=== PATIENT | female | born 1990 | race Caucasian/White ===

== ENCOUNTER 2016-07-24 06:10 | Day surgery (SDC) | payer MEDICAID ==
[2016-07-22 10:29] LABS: HEMATOCRIT 41.3 % (36.0-47.0); HEMOGLOBIN 14.4 g/dL (12.0-15.5); HGB HCT DIFFERENCE 1.9; MEAN CORPUSCULAR HEMOGLOBIN 31.4 pg (27.0-33.4); MEAN CORPUSCULAR HGB CONC 34.8 g/dL (32.0-36.0); MEAN CORPUSCULAR VOLUME 90 fl (80-97); RED BLOOD COUNT 4.57 10^6/uL (3.72-5.28); RED CELL DISTRIBUTION WIDTH 13.5 % (11.5-14.0); WHITE BLOOD COUNT 5.1 10^3/uL (4.0-10.5)
[2016-07-22 10:37] LABS: APPEARANCE,URINE CLOUDY; BILIRUBIN,URINE NEGATIVE (NEGATIVE); GLUCOSE, URINE NEGATIVE (NEGATIVE); KETONES,URINE NEGATIVE (NEGATIVE); LEUKOCYTE ESTERASE,URINE LARGE (NEGATIVE); NITRITE,URINE NEGATIVE (NEGATIVE); PROTEIN,URINE 30 mg/dL (NEGATIVE); URINE SPECIFIC GRAVITY 1.028; UROBILINOGEN,URINE NEGATIVE mg/dL (<2.0)
[~2016-07-24 06:10] MED LIST: IBUPROFEN 800 MG TABLET PO PRN; LACTATED RINGERS 1000 ML IV PRN; LIDOCAINE 0.5% INJ-PF (5 MG/ML) 50 ML SDV SUBCUT PRN; MORPHINE SULFATE 10 MG/ML INJ INJ PRN; OXYCODONE-ACETAMINOPHEN 5-325 MG TABLET PO PRN
[2016-07-24] MEDS ORDERED: HYDROMORPHONE HCL INJ/PF 2 MG/ML AMPULE ONE (08:07)
[2016-07-24] MEDS ORDERED: MIDAZOLAM 2 MG/2 ML INJ ONE (08:07)
[2016-07-24] MEDS ORDERED: PROPOFOL INJ 200 MG/20 ML VIAL IV ONE (08:08)
[2016-07-24] MEDS ORDERED: ACETAMINOPHEN 100 ML IV ONE (08:08)
[2016-07-24] MEDS ORDERED: DEXAMETHASONE SOD PHOSPHATE INJ 4 MG/1 ML VIAL ONE (08:12)
[2016-07-24] MEDS ORDERED: ONDANSETRON HCL INJ/PF 4 MG/2 ML SDV ONE (08:12)
[2016-07-24] MEDS ORDERED: DIPHENHYDRAMINE HCL 50 MG/ML VIAL IV PRN (08:55)
[2016-07-24] MEDS ORDERED: MORPHINE SULFATE 10 MG/ML INJ IV PRN (08:55)
[2016-07-24] MEDS ORDERED: MEPERIDINE HCL/PF INJ 25 MG/1 ML DISP.SYRIN IV PRN (08:55)
[2016-07-24] MEDS ORDERED: ONDANSETRON HCL INJ/PF 4 MG/2 ML SDV IV PRN (08:55)
[2016-07-24] MEDS ORDERED: PROMETHAZINE HCL INJ 25 MG/1 ML VIAL IV PRN ×2 (08:55)
[2016-07-24] MEDS ORDERED: OXYCODONE-ACETAMINOPHEN 5-325 MG TABLET PO PRN ×2 (08:55)
[2016-07-24] MEDS ORDERED: FENTANYL CITRATE INJ/PF 100 MCG/2 ML AMPUL IV PRN ×3 (08:55)
[2016-07-24] MEDS ORDERED: EPHEDRINE SULFATE INJ 50 MG/1 ML AMPULE ONE (09:02)
--- NOTE | 2016-07-24 10:03 | OPERATIVE REPORT E ---
Operative Report NAME: NURY ROSALES : 1990 AGE: 26Y DATE OF SURGERY: 07/30/2016 ROOM: PREOPERATIVE DIAGNOSIS: Undesired fertility. POSTOPERATIVE DIAGNOSIS: Undesired fertility. TECHNICAL PROCEDURE: Laparoscopic bilateral salpingectomy done for permanent sterilization. SURGEON: JORDI MCCORD M.D. CAR ICER: Samina Madrigal, Nursing Technician student ANESTHESIA: Dr. Johnson with General. FINDINGS: Normal uterus, tubes, and ovaries. Normal cervix. COMPLICATIONS: None. ESTIMATED BLOOD LOSS: Twenty mL. SPECIMENS REMOVED: Bilateral fallopian tubes. PROCEDURE IN DETAIL: Patient had been counseled and consented, both in the office at preop, as well as again today regarding risks of regret and permanence of this procedure. She was also counseled on the benefits of complete removal versus partial salpingectomy. She did opt for complete removal of her fallopian tubes and she was once again counseled on risks of regret and the need for reproductive endocrinology services should she desire future childbearing, but she assured me with her 4 children that she does not desire any future childbearing. Patient was taken to the operating room, prepared, and draped in a normal sterile fashion and in dorsal lithotomy position under sterile conditions an in and out catheter was performed of approximately 60 mL of clear urine. Sterile speculum was then placed into the vagina. The cervix was grasped with a single tooth tenaculum on the anterior lip and the cervix was prepped with Betadine. The cervix was then dilated with a Hulka clamp for uterine manipulation and this was placed without difficulty through the cervix. Speculum was then removed and gloves were changed and attention was turned to the upper portion of the case, where the umbilicus was grasped with 2 towel clips on either side and tented up. We then made a small 5 mm incision with an 11 blade and the Veress needle was introduced through this incision. Peritoneal cavity placement was confirmed with free flow of sterile water through the Veress needle. The abdomen was then insufflated with approximately 1.5 liters of CO2 gas. The Veress needle was removed and a 5 mm port was placed through which the camera was placed and it confirmed peritoneal placement. Under direct visualization, 2 more 5 mm ports were placed approximately 10 cm on either side of the umbilicus. The bowel was swept away. The patient was placed in steep Trendelenburg and the uterus was elevated. The left fallopian tube was grasped with an atraumatic grasper and a LigaSure was used to divide the mesosalpinx from the ovary and the fundus of the uterus until it was completely freed. This was then removed easily through the trocar. This was repeated on the patient's right fallopian tube without difficulty. The abdomen was once again inspected and pictures were taken and everything was found to be hemostatic. The trocars were removed under direct visualization and again with good hemostasis noted at the trocar sites. The skin sites were then closed with 4-0 Vicryl at all 4 sites. The Hulka clamp was removed from the vagina. The patient tolerated the procedure well. Sponge, lap, and needle counts were correct x2. Patient was taken to recovery in stable condition. DICTATING PHYSICIAN: JORDI MCCORD M.D. [id number] PHY#: [id number] ID: [id number] JOB#: [id number] ACCT: [id number] cc:JORDI MCCORD M.D. >
[2016-07-24 12:52] VITALS: BP 106/64
[2016-07-24] MEDS ORDERED: SUCCINYLCHOLINE CHLORIDE INJ 200 MG/10 ML VIAL ONE (14:24)
[2016-07-24] MEDS ORDERED: KETOROLAC TROMETHAMINE 60 MG/2 ML SDV ONE (14:24)
[2016-07-24] MEDS ORDERED: METOCLOPRAMIDE HCL INJ/PF 10 MG/2 ML SDV ONE (14:24)
[2016-07-24] MEDS ORDERED: LIDOCAINE 2% INJ-PF (20 MG/ML) 10 ML AMPUL ONE (14:24)
[2016-07-24] MEDS ORDERED: GLYCOPYRROLATE INJ 0.4 MG/2 ML VIAL ONE (14:24)
== END 2016-07-24 11:25 | disposition home or self-care (01) ==
LOC: OROUT 06:10
PROVIDERS: ATTEND Obstetrics & Gynecology
PROC: 0UT74ZZ Resection of Bilateral Fallopian Tubes, Percutaneous Endoscopic Approach (ICD-10-PCS; principal; 2016-07-24 08:15)
DX: Z30.2 Encounter for sterilization (principal); Z79.899 Other long term (current) drug therapy
CPT/HCPCS: 36415; 85027; 81005; 81025; 88305 ×2; 58661; J2250; J1100; J3490 ×3; J1885; J2765; J1170; J0330; J2405; J2704; J0131; 851

== ENCOUNTER 2018-01-25 14:53 | Emergency (ER) | payer SELFPAY ==
[2018-01-25 15:04] VITALS: BP 105/56
--- NOTE | 2018-01-25 15:23 | ER Document Report ---
ED General - General Chief Complaint: Sore Throat Stated Complaint: SORE THROAT TRAVEL OUTSIDE OF THE [place] IN LAST 30 DAYS: No - HPI Notes: 27-year-old female 2 days gradual onset fever throat pain. Burning sharp, nonradiating. Body aches well. No cough. No other modifying factors, no other associated symptoms, no other provocative or palliative factors. - Related Data Allergies/Adverse Reactions: No Known Allergies Allergy (Verified 06/01/16 06:35) Past Medical History - Social History Smoking Status: Never Smoker Family History: Reviewed & Not Pertinent - Past Medical History Cardiac Medical History: Denies: Hx Coronary Artery Disease, Hx Heart Attack, Hx Hypertension Pulmonary Medical History: Denies: Hx Asthma, Hx Bronchitis, Hx COPD, Hx Pneumonia Neurological Medical History: Denies: Hx Cerebrovascular Accident, Hx Seizures Musculoskeletal Medical History: Denies Hx Arthritis Past Surgical History: Reports: Hx Tonsillectomy - and adenoids - Immunizations Immunizations up to date: Yes Hx Diphtheria, Pertussis, Tetanus Vaccination: No Review of Systems - Review of Systems Notes: Review of systems as in the history of present illness, otherwise negative x 10 systems. Physical Exam - Vital signs Vitals: Temp Pulse Resp BP Pulse Ox 99.5 F 93 18 105/56 L 100 01/25/18 15:03 01/25/18 15:03 01/25/18 15:03 01/25/18 15:03 01/25/18 15:03 - Notes Notes: General: Well developed . HEENT: Normocephalic, atraumatic. Pupils equal round reactive to light. No JVD. Bilateral tonsillar erythema, left-sided tonsillar purulence. Anterior cervical adenopathy. Chest: No trauma. Respiratory: Good air exchange, normal excursion. Cardiac: Regular rhythm. No murmurs or gallops. Abdomen: Soft, benign. Nondistended. Nontender. Back: No asymmetry or gross abnormality. Motor: Grossly normal power and tone. Neurologic: Alert, nonfocal. Cranial nerves II-12 are intact. Sensation intact. Vascular: Well perfused. Normal peripheral pulses. Skin: No petechiae or purpura. Course - Re-evaluation Re-evalutation: 01/25/18 15:34 Well-appearing female high likelihood of streptococcal pharyngitis, will treat empirically, amoxicillin given, prescription, outpatient follow-up. - Vital Signs Vital signs: Temp Pulse Resp BP Pulse Ox 99.5 F 93 18 105/56 L 100 01/25/18 15:03 01/25/18 15:03 01/25/18 15:03 01/25/18 15:03 01/25/18 15:03 Discharge - Discharge Clinical Impression: Pharyngitis Qualifiers: Pharyngitis/tonsillitis etiology: streptococcus Qualified Code(s): J02.0 - Streptococcal pharyngitis Condition: Good Disposition: HOME, SELF-CARE Instructions: Strep Throat ([facility]) Prescriptions: Amoxicillin 500 mg PO Q8 #30 capsule Referrals: SEFERINO DRUMMOND MD [Primary Care Provider] - Follow up as needed
== END 2018-01-25 15:31 | disposition home or self-care (01) ==
LOC: ER 14:53
DX: J02.0 Streptococcal pharyngitis (principal); R50.9 Fever, unspecified
CPT/HCPCS: 99282

== ENCOUNTER 2018-06-15 09:37 | Emergency (ER) | payer SELFPAY | END 2018-06-15 09:38 | disposition left against medical advice (07) | LOC: ER 09:37 | DX: Z53.21 Procedure and treatment not carried out due to patient leaving prior to being seen by health care provider (principal); J02.9 Acute pharyngitis, unspecified ==

== ENCOUNTER 2019-07-21 08:15 | Emergency (ER) | payer MEDICAID ==
[2019-07-21] MEDS ORDERED: LIDOCAINE 2% VISCOUS SOLN 20 ML UDCUP PO ONE (10:09)
[2019-07-21] MEDS ORDERED: IBUPROFEN 600 MG TABLET PO ONE (10:09)
[2019-07-21] MEDS ORDERED: PENICILLIN V POTASSIUM 500 MG TABLET PO ONE (10:09)
--- NOTE | 2019-07-21 10:12 | ER Document Report ---
ED Oral Problem - General Chief Complaint: Toothache Stated Complaint: TOOTHACHE Time Seen by Provider: 07/21/19 10:07 Primary Care Provider: [facility] [Provider Group] - Follow up as needed Mode of Arrival: Ambulatory Information source: Patient Notes: 29-year-old female presented to ED for dental pain to the front top right tooth. She states is been hurting for about 2 days. She states it broke off 2 days ago. She does have a large cavity to the tooth with swelling above the upper lip. She does have other teeth that do need to be addressed when she goes to the dentist. TRAVEL OUTSIDE OF THE [place] IN LAST 30 DAYS: No - HPI Patient complains to provider of: Toothache Onset: Other - Days ago Onset: Gradual Severity: Severe Pain Level: 5 Associated symptoms: Toothache Worsened by: Nothing Relieved by: Nothing Similar symptoms previously: Yes Recently seen / treated by doctor/dentist: No - Related Data Allergies/Adverse Reactions: No Known Allergies Allergy (Verified 07/21/19 08:26) Past Medical History - General Information source: Patient - Social History Smoking Status: Never Smoker Chew tobacco use (# tins/day): No Frequency of alcohol use: None Drug Abuse: None Lives with: Alone Family History: Reviewed & Not Pertinent Patient has suicidal ideation: No Patient has homicidal ideation: No - Past Medical History Cardiac Medical History: Reports: None Pulmonary Medical History: Reports: None EENT Medical History: Reports: None Endocrine Medical History: Reports: None Renal/ Medical History: Reports: None Malignancy Medical History: Reports: None GI Medical History: Reports: None Musculoskeletal Medical History: Reports None Skin Medical History: Reports None Psychiatric Medical History: Reports: None Traumatic Medical History: Reports: None Infectious Medical History: Reports: None Past Surgical History: Reports: Hx Adenoidectomy, Hx Tonsillectomy - and joon noids - Immunizations Immunizations up to date: Yes Hx Diphtheria, Pertussis, Tetanus Vaccination: No History of Influenza Vaccine for 04/2019 - 09/2019 Season: No Review of Systems - Review of Systems Constitutional: No symptoms reported EENT: Dental problem Cardiovascular: No symptoms reported Respiratory: No symptoms reported Gastrointestinal: No symptoms reported Genitourinary: No symptoms reported Female Genitourinary: No symptoms reported Musculoskeletal: No symptoms reported Skin: No symptoms reported Hematologic/Lymphatic: No symptoms reported Neurological/Psychological: No symptoms reported Physical Exam - Vital signs Vitals: Temp Pulse Resp BP Pulse Ox 98.3 F 68 16 134/83 H 100 07/21/19 08:18 07/21/19 08:18 07/21/19 08:18 07/21/19 08:18 07/21/19 08:18 Interpretation: Normal - General General appearance: Appears well, Alert - HEENT Head: Normocephalic, Atraumatic Eyes: Normal Pupils: PERRL Ears: Normal External canal: Normal Tympanic membrane: Normal Sinus: Normal Nasal: Normal Mouth/Lips: Caries Mucous membranes: Normal Teeth diagram: 1 - Decayed tooth that is broken off above the gumline, gums swollen around the area, minimal facial swelling Pharynx: Normal Neck: Anterior cervical chain - Respiratory Respiratory status: No respiratory distress Chest status: Nontender Breath sounds: Normal Chest palpation: Normal - Cardiovascular Rhythm: Regular Heart sounds: Normal auscultation Murmur: No - Abdominal Inspection: Normal Distension: No distension Bowel sounds: Normal Tenderness: Nontender Organomegaly: No organomegaly - Back Back: Normal, Nontender - Extremities General upper extremity: Normal inspection, Nontender, Normal color, Normal ROM, Normal temperature General lower extremity: Normal inspection, Nontender, Normal color, Normal ROM, Normal temperature, Normal weight bearing. No: Haile's sign - Neurological Neuro grossly intact: Yes Cognition: Normal Orientation: AAOx4 [place] Coma Scale Eye Opening: Spontaneous [place] Coma Scale Verbal: Oriented [place] Coma Scale Motor: Obeys Commands [place] Coma Scale Total: 15 Speech: Normal Motor strength normal: LUE, RUE, LLE, RLE Sensory: Normal - Psychological Associated symptoms: Normal affect, Normal mood - Skin Skin Temperature: Warm Skin Moisture: Dry Skin Color: Normal Course - Re-evaluation Re-evalutation: 07/21/19 10:16 Presentation is most consistent with likely an infected tooth. Airway is pat ent. Vitals within normal limits. Patient is able swallow without any difficulty. There is no significant facial swelling. No evidence of Darryl angina, apical abscess, or airway obstruction. Patient will be started on antibiotics. I've instructed to follow-up with dentistry as earliest ability for definitive management. At this time will discharge with return precautions and follow-up recommendations. Verbal discharge instructions given a the bedside and opportunity for questions given. Medication warnings reviewed. Patient is in agreement with this plan and has verbalized understanding of return precautions and the need for primary care follow-up in the next 24-72 hours. - Vital Signs Vital signs: Temp Pulse Resp BP Pulse Ox 98.3 F 76 16 127/74 H 98 07/21/19 10:11 07/21/19 10:11 07/21/19 10:11 07/21/19 10:11 07/21/19 10:11 Discharge - Discharge Clinical Impression: Pain due to dental caries Condition: Stable Disposition: HOME, SELF-CARE Additional Instructions: TOOTHACHE: Your pain is due to dental decay. The tooth must be repaired in order for you to feel better. You will, therefore, be referred to a dentist. We do not have dentists on the staff at [facility]. Severe swelling or drainage around a tooth usually means a dental abscess. This also requires evaluation and treatment by the dentist, but antibiotics may be prescribed while awaiting dental treatment. You should be rechecked immediately if you develop major swelling of the face, increasing pain, a lump in the jaw or gums, headache, difficulty swallowing, or fever. PENICILLIN V K: You have been given a prescription for Penicillin VK. Your physician has d etermined that this is the best antibiotic for your condition. Pen VK can be taken with meals, however more of the antibiotic gets into the bloodstream if it's taken on an empty stomach. Penicillin usually has no side effects. However, allergy to penicillins is common. If you have had an allergic reaction to any drug of the penicillin family, you should never take any other penicillin. Notify your doctor at once if you develop hives, itching, swelling, faintness, or shortness of breath. Acetaminophen Acetaminophen may be taken for pain relief or fever control. It's much safer than aspirin, offering a wider range of "safe" dosages. It is safe during . Some brand names are Tylenol, Panadol, Datril, Anacin 3, Tempra, and Liquiprin. Acetaminophen can be repeated every four hours. The following are maximum recommended dosages: WEIGHT Dose Drops Elixir Chewable(80mg) (LBS.) drprs=droppers tsp=teaspoon 6 40 mg .4 ml (1/2) 6-11 80 mg .8 ml (full) 1/2 tsp 1 tab 12-16 120 mg 1 1/2 drprs 3/4 tsp 1 1/2 tabs 17-23 160 mg 2 drprs 1 tsp 2 tabs 24-30 240 mg 3 drprs 1 1/2 tsp 3 tabs 30-35 320 mg 2 tsp 4 tabs 36-41 360 mg 2 1/4 tsp 4 1/2 tabs 42-47 400 mg 2 1/2 tsp 5 tabs 48-53 480 mg 3 tsp 6 tabs 54-59 520 mg 3 1/4 tsp 6 1/2 tabs 60-64 560 mg 3 1/2 tsp 7 tabs 65-70 600 mg 3 3/4 tsp 7 1/2 tabs 71-76 640 mg 4 tsp 8 tabs 77-82 720 mg 4 1/2 tsp 9 tabs 83-88 800 mg 5 tsp 10 tabs >89 pounds or adults 650 mg to 900 mg Acetaminophen can be repeated every four hours. Maximum daily dose not to exceed 4000 mg. These maximum recommended dosages are slightly higher than the dosages written on the product container, but these dosages are very safe and well below the toxic dosage for acetaminophen. Ibuprofen Ibuprofen is an excellent, safe drug for pain control. In addition, it has potent antiinflammatory effects which are beneficial, especially in the treatment of injuries, arthritis, or tendonitis. It's best to take ibuprofen with food. Persons with ulcer disease or allergy to aspirin should notify their physician of this before taking ibuprofen. Take the medication exactly as prescribed. Don't take additional doses unless instructed to do so by your doctor. If you develop wheezing, shortness of breath, hives, faintness, stomach pain, vomiting, or dark black stools, return for re-evaluation at once. Please place a small amount of the lidocaine on your finger will be to the gums and tooth that are affected every 4 hours as needed for pain. Please do not use more often than this as it can denatured the skin and cause more pain and infection. FOLLOW-UP CARE: You have been referred for follow-up care to the dentists listed below. Call the dentists office for an appointment as you were instructed or within the next two days. If you experience worsening or a significant change in your symptoms, notify the physician immediately or return to the Emergency Department at any time for re-evaluation. [facility] [address] [place] [address] [facility] [address] [facility] [address] [facility] [address] [email or web address] [address] [place] [address] Friday- 8:00am to 5:00 pm Will see patients from other [facility]. Charges based on income and family size and accepts Medicare, Medicaid, and Insurances Will pull molars [facility] [address] Hours of Operation 8:00 am - 4:30 pm weekdays The following dental offices accept Medicaid: [facility] Dr. Barajas Dr. Mendez Dr. Castillo Dr. Santos German Giron Lutsavage, and [facility] Dr. Cole ([place]) Dr. Simon ([place]) [facility] Drs. Medrano and Tunde ([place]) Dr. Sterling ([place]) [facility] Dr. Lindsey ([place]) Drs. Amanda and Scholar ([place]) Medicaid Care Line Prescriptions: Penicillin V Potassium [Penicillin Vk 500 mg Tablet] 500 mg PO BID #20 tablet Forms: Elevated Blood Pressure Referrals: [facility] [Provider Group] - Follow up as needed
[2019-07-21 10:19] VITALS: BP 127/74
== END 2019-07-21 10:20 | disposition home or self-care (01) ==
LOC: ER 08:15
DX: K02.9 Dental caries, unspecified (principal); K08.89 Other specified disorders of teeth and supporting structures; R22.0 Localized swelling, mass and lump, head
CPT/HCPCS: 99282; J3490 ×3

== ENCOUNTER 2020-06-30 14:26 | Emergency (ER) | payer MEDICAID ==
[2020-06-30] MEDS ORDERED: HYDROCODONE/ACETAMINOPHEN 5-325 MG TABLET PO ONE (15:44)
[2020-06-30] MEDS ORDERED: KETOROLAC TROMETHAMINE 60 MG/2 ML SDV IM ONE (15:44)
--- NOTE | 2020-06-30 15:45 | ER Document Report ---
ED Medical Screen (RME) - General Time Seen by Provider: 06/30/20 15:37 Mode of Arrival: Wheelchair Information source: Patient Notes: Patient is a 30-year-old female comes emergency room complaining of severe mid back pain that started suddenly this morning. Patient states she woke up this morning fine couple of hours later she had sudden onset of severe mid back pain intrascapular. Patient denies any other medical problems no history of cardiac. She denies smoking or drugs. Only surgical history is pertinent for tubal ligation. Patient denies any known traumatic events. She is writhing in pain and difficult to examine. Patient denies any abdominal pain no nausea vomiting or diarrhea. Patient has no loss of urine or stool. Physical examination: Patient is a frail-appearing 30-year-old female though no apparent distress that appears very uncomfortable. Patient cannot find a position of comfort at this time. Cardiac: Patient displays a regular rate and rhythm at 87 bpm on monitor no murmurs are auscultated. Patient's vital signs showed a heart rate of 87, respiratory rate of 20 and a blood pressure 121/79. Lungs: Bilateral breath sounds are increased throughout no rhonchi rales or wheeze heard. Patient does display a O2 saturation of 98%. Abdomen: Bowel sounds are present all 4 quads nontender to palpate in the abdominal area. I have greeted and performed a rapid initial assessment of this patient. A comprehensive ED assessment and evaluation of the patient, analysis of test results and completion of the medical decision making process will be conducted by additional ED providers. Dictation of this chart was performed using voice recognition software; therefore, there may be some unintended grammatical errors. Given patient had such a sudden onset of severe pain I am doing a cardiac work- up giving her presentation along with chest x-ray and a D-dimer secondary to the increased amount of discomfort and pain she is in. TRAVEL OUTSIDE OF THE [place] IN LAST 30 DAYS: No - Related Data Allergies/Adverse Reactions: No Known Allergies Allergy (Verified 07/21/19 08:26) Past Medical History - Past Medical History Cardiac Medical History: Denies: Hx Coronary Artery Disease, Hx Heart Attack, Hx Hypertension Pulmonary Medical History: Denies: Hx Asthma, Hx Bronchitis, Hx COPD, Hx Pneumonia Neurological Medical History: Denies: Hx Cerebrovascular Accident, Hx Seizures Renal/ Medical History: Denies: Hx Peritoneal Dialysis Musculoskeltal Medical History: Denies Hx Arthritis Past Surgical History: Reports: Hx Adenoidectomy, Hx Tonsillectomy - and adenoids - Immunizations Immunizations up to date: Yes Hx Diphtheria, Pertussis, Tetanus Vaccination: No Course - Laboratory Results Result Diagrams: 06/30/20 15:37 06/30/20 15:37
[2020-06-30 16:07] LABS: ABSOLUTE BASOPHILS # (AUTO) 0.1 10^3/uL (0.0-0.2); ABSOLUTE LYMPHOCYTES (AUTO) 1.1 10^3/uL (0.5-4.7); ABSOLUTE MONOCYTES (AUTO) 0.4 10^3/uL (0.1-1.4); BASOPHILS % (AUTO) 0.7 % (0-2); EOSINOPHILS % (AUTO) 0.1 % (0-6); HEMATOCRIT 38.8 % (36.0-47.0); HEMOGLOBIN 13.4 g/dL (12.0-15.5); LYMPHOCYTES % (AUTO) 14.1 % (13-45); MEAN CORPUSCULAR HEMOGLOBIN 28.6 pg (27.0-33.4); MEAN CORPUSCULAR HGB CONC 34.5 g/dL (32.0-36.0); MEAN CORPUSCULAR VOLUME 83 fl (80-97); MONOCYTES % (AUTO) 5.8 % (3-13); PLATELET COUNT 305 10^3/uL (150-450); RED CELL DISTRIBUTION WIDTH 14.9 % (11.5-14.0); SEGMENTED NEUTROPHILS % (AUTO) 79.3 % (42-78); TOTAL CELLS COUNTED % (AUTO) 100 %; WHITE BLOOD COUNT 7.6 10^3/uL (4.0-10.5)
--- NOTE | 2020-06-30 16:23 | RADIOLOGY REPORT (SQ) ---
EXAM DESCRIPTION: CHEST SINGLE VIEW IMAGES COMPLETED DATE/TIME: 06/30/2020 4:11 pm REASON FOR STUDY: mid back pain COMPARISON: None. EXAM PARAMETERS: NUMBER OF VIEWS: One view. TECHNIQUE: Single frontal radiographic view of the chest acquired. RADIATION DOSE: NA LIMITATIONS: None. FINDINGS: LUNGS AND PLEURA: No opacities, masses or pneumothorax. No pleural effusion. MEDIASTINUM AND HILAR STRUCTURES: No masses. Contour normal. HEART AND VASCULAR STRUCTURES: Heart normal in size. Normal vasculature. BONES: No acute findings. HARDWARE: None in the chest. OTHER: No other significant finding. IMPRESSION: NO ACUTE RADIOGRAPHIC FINDING IN THE CHEST. TECHNICAL DOCUMENTATION: JOB ID: [id number] 2010 [employer]- All Rights Reserved Reading location - IP/workstation name: [email or web address]
[2020-06-30 16:26] LABS: ALBUMIN 5.4 g/dL (3.5-5.0); ALKALINE PHOSPHATASE 113 U/L (38-126); ANION GAP 18 (5-19); ASPARTATE AMINO TRANSFERASE 95 U/L (14-36); BILIRUBIN,DIRECT 0.4 mg/dL (0.0-0.4); BILIRUBIN,TOTAL 1.8 mg/dL (0.2-1.3); BLOOD UREA NITROGEN 29 mg/dL (7-20); CALCIUM 10.5 mg/dL (8.4-10.2); CARBON DIOXIDE 25 mmol/L (22-30); CHLORIDE 97 mmol/L (98-107); GLUCOSE 113 mg/dL (75-110); POTASSIUM 5.3 mmol/L (3.6-5.0); TOTAL PROTEIN 10.1 g/dL (6.3-8.2)
[2020-06-30] MEDS ORDERED: MORPHINE SULFATE 10 MG/ML INJ IV ONE (16:46)
[2020-06-30] MEDS ORDERED: NORMAL SALINE 1000 ML 1,000 ML IV ONE (16:48)
--- NOTE | 2020-06-30 16:55 | ER Document Report ---
ED General - General Mode of Arrival: Wheelchair TRAVEL OUTSIDE OF THE [place] IN LAST 30 DAYS: No <CATHLEEN MORAN - Last Filed: 06/30/20 20:15> <TOÑITO KENDRICK - Last Filed: 06/30/20 21:06> - General Chief Complaint: Back Pain Time Seen by Provider: 06/30/20 15:37 - HPI Notes: 30-year-old female with past medical history for IV drug abuse to the emergency department via EMS with complaints of acute onset severe mid back pain today. She denies any nausea or vomiting. She states initially the pain was running around into the front of her abdomen. Denies any diarrhea. Denies any shortness of breath. She uses IV heroin. She states her last use was 4 days ago. She denies any shortness of breath. She denies any leg swelling. She states she is never had that severe pain before. (CATHLEEN MORAN) - Related Data Allergies/Adverse Reactions: No Known Allergies Allergy (Verified 07/21/19 08:26) Past Medical History - General Information source: Patient - Social History Smoking Status: Never Smoker Frequency of alcohol use: None Drug Abuse: Heroin Family History: Reviewed & Not Pertinent Patient has homicidal ideation: No - Past Medical History Cardiac Medical History: Denies: Hx Coronary Artery Disease, Hx Heart Attack, Hx Hypertension Pulmonary Medical History: Denies: Hx Asthma, Hx Bronchitis, Hx COPD, Hx Pneumonia Neurological Medical History: Denies: Hx Cerebrovascular Accident, Hx Seizures Renal/ Medical History: Denies: Hx Peritoneal Dialysis Musculoskeletal Medical History: Denies Hx Arthritis Psychiatric Medical History: Reports: Hx Depression - and anxiety Past Surgical History: Reports: Hx Adenoidectomy, Hx Tonsillectomy - and adenoids - Immunizations Immunizations up to date: Yes Hx Diphtheria, Pertussis, Tetanus Vaccination: No <CATHLEEN MORAN - Last Filed: 06/30/20 20:15> Review of Systems - Review of Systems Constitutional: denies: Chills, Fever EENT: No symptoms reported Cardiovascular: denies: Chest pain, Palpitations, Heart racing, Syncope, Dizziness, Lightheaded Respiratory: denies: Cough, Short of breath Gastrointestinal: denies: Abdominal pain, Diarrhea, Nausea, Vomiting Genitourinary: denies: Frequency, Flank pain Female Genitourinary: No symptoms reported Musculoskeletal: See HPI, Back pain Skin: No symptoms reported Hematologic/Lymphatic: No symptoms reported Neurological/Psychological: No symptoms reported <CATHLEEN MORAN - Last Filed: 06/30/20 20:15> Physical Exam - Vital signs Interpretation: Normal <MAC MORANBESTACIA Okeefe - Last Filed: 06/30/20 20:15> - Vital signs Vitals: Resp BP Pulse Ox 22 H 135/84 H 100 06/30/20 16:23 06/30/20 16:23 06/30/20 16:23 - Notes Notes: PHYSICAL EXAMINATION: GENERAL: thin, chronically ill-appearing female, patient appears to be in some pain and cannot seem to get comfortable HEAD: Atraumatic, normocephalic. EYES: Pupils equal round and reactive to light, extraocular movements intact, sclera anicteric, conjunctiva are normal. ENT: nares patent, oropharynx clear without exudates. Moist mucous membranes. NECK: Normal range of motion, supple without lymphadenopathy LUNGS: Breath sounds clear to auscultation bilaterally and equal. No wheezes rales or rhonchi. HEART: Regular rate and rhythm without murmurs ABDOMEN: Soft, nontender, normoactive bowel sounds. No guarding, no rebound. No masses appreciated. EXTREMITIES: Normal range of motion, no pitting or edema. No cyanosis. There is mild tenderness to palpation over the midline thoracic spine with no step-off or deformity. There is no evidence for cutaneous abscess. NEUROLOGICAL: No focal neurological deficits. Moves all extremities spontaneously and on command. PSYCH: Normal mood, normal affect. SKIN: Warm, Dry, normal turgor, no rashes or lesions noted. Noted multiple tra ck mcconnell to the arm. There is also a flat erythematous papular rash to the right upper arm and axilla. There is no vesicles or desquamation. There is no evidence for cutaneous abscess (CATHLEEN MORAN) Course - Laboratory Results Result Diagrams: 06/30/20 15:37 06/30/20 15:37 <CATHLEEN MORAN - Last Filed: 06/30/20 20:15> - Laboratory Results Result Diagrams: 06/30/20 15:37 06/30/20 15:37 Critical Laboratory Results Reviewed: No Critical Results - Radiology Results Critical Radiology Results Reviewed: No Critical Results <TOÑITO KENDRICK - Last Filed: 06/30/20 21:06> - Re-evaluation Re-evalutation: 06/30/20 17:15 IV drug abuser with back pain to the emergency department. Does not have a le ukocytosis however concerned that potentially there is a bigger infection here due to her IV drug abuse. I did discuss this patient with Dr. Olmstead, my ER attending. We agree that we will obtain an MRI to evaluate for possible evolving epidural abscess. We will also obtain blood cultures and lactic acid. 06/30/20 19:46 Rounded on patient. Her pain is much better. She states it hurts little bit more when she lays back on it. MRI of the thoracic spine shows no evidence for abscess. Still pending urinalysis. 06/30/20 20:15 Turned patient over to ANNA Kendrick. He will await UA and disposition the patient. (CATHLEEN MORAN) 06/30/20 21:01 assumed care of pt at shift change. pending UA. reviewed UA and its negative. will d/c home and treat w/ msk back pain w/ muscle relaxers and lidocaine patches. return factors discussed. (TOÑITO KENDRICK) - Vital Signs Vital signs: Temp Pulse Resp BP Pulse Ox 98.4 F 19 105/73 100 06/30/20 16:39 06/30/20 20:07 06/30/20 20:06 06/30/20 18:31 - Laboratory Results Laboratory Results Interpreted: 06/30/20 06/30/20 06/30/20 15:37 15:37 19:45 RDW 14.9 H Seg Neutrophils % 79.3 H Potassium 5.3 H Chloride 97 L BUN 29 H Glucose 113 H Calcium 10.5 H Total Bilirubin 1.8 H AST 95 H ALT 99 H Total Protein 10.1 H Albumin 5.4 H Urine Protein 100 H Urine Ketones 20 H Urine Urobilinogen 2.0 H Discharge <CATHLEEN MORAN - Last Filed: 06/30/20 20:15> <TOÑITO KENDRICK - Last Filed: 06/30/20 21:06> - Discharge Clinical Impression: Mid back pain Condition: Stable Disposition: HOME, SELF-CARE Instructions: Low Back Pain ([facility]) Prescriptions: Lidocaine 1 each TP Q6HP PRN #10 adh..patch PRN Reason: Cyclobenzaprine HCl [Flexeril 10 mg Tablet] 10 mg PO TIDP PRN #15 tab PRN Reason:
--- NOTE | 2020-06-30 19:40 | RADIOLOGY REPORT (SQ) ---
EXAM DESCRIPTION: MRI THORACIC SPINE WITHOUT IMAGES COMPLETED DATE/TIME: 06/30/2020 7:28 pm REASON FOR STUDY: back pain, IV drug abuse, eval abscess COMPARISON: None. TECHNIQUE: Sagittal and Axial imaging includes T1, T2, STIR and gradient echo sequences. LIMITATIONS: There is a small amount of motion artifact. FINDINGS: LOCALIZER: No worrisome findings. ALIGNMENT: Normal. VERTEBRAE: Intact. BONE MARROW: Normal. No marrow replacement or reactive changes. HARDWARE: None in the spine. CORD: Normal in size and signal intensity. SOFT TISSUES: No soft tissue masses. THORACIC DISCS T1-T12: No significant spinal stenosis or exit foraminal stenosis. LOWER CERVICAL: Incompletely imaged. No significant spinal stenosis or exit foraminal stenosis. UPPER LUMBAR: Incompletely imaged. No significant spinal stenosis or exit foraminal stenosis. OTHER: No other significant finding. IMPRESSION: NORMAL MRI THORACIC SPINE. TECHNICAL DOCUMENTATION: JOB ID: [id number] 2010 [employer]- All Rights Reserved Reading location - IP/workstation name: [email or web address]
[2020-06-30] MEDS ORDERED: CYCLOBENZAPRINE HCL 10 MG TABLET PO ONE (20:11)
[2020-06-30 20:14] LABS: APPEARANCE,URINE CLOUDY; BILIRUBIN,URINE NEGATIVE (NEGATIVE); COLOR,URINE AMBER; GLUCOSE, URINE NEGATIVE (NEGATIVE); KETONES,URINE 20 mg/dL (NEGATIVE); LEUKOCYTE ESTERASE,URINE NEGATIVE (NEGATIVE); NITRITE,URINE NEGATIVE (NEGATIVE); PROTEIN,URINE 100 mg/dL (NEGATIVE); URINE SPECIFIC GRAVITY 1.029
[2020-06-30 20:21] LABS: URINE BARBITURATES SCREEN NEGATIVE; URINE BENZODIAZEPINES SCREEN NEGATIVE; URINE COCAINE SCREEN NEGATIVE; URINE METHADONE SCREEN NEGATIVE; URINE PHENCYCLIDINE SCREEN NEGATIVE
[2020-06-30 20:26] LABS: URINE MARIJUANA (THC) SCREEN UNCONFIRMED POSITIVE
[2020-06-30 21:08] VITALS: BP 97/61
--- NOTE | 2020-07-01 17:26 | EKG REPORT ---
SEVERITY:- BORDERLINE ECG - SINUS RHYTHM BORDERLINE T ABNORMALITIES, INFERIOR LEADS BORDERLINE PROLONGED QT INTERVAL : Confirmed by: Nehal Rodriguez MD 01-Jul-2020 17:25:42
== END 2020-06-30 21:14 | disposition home or self-care (01) ==
LOC: ER 15:14
DX: M54.6 Pain in thoracic spine (principal)
CPT/HCPCS: 93005; 99285; 96372; 96361; 96374; 36415; 87040; 87086; 83605; 85025; 87077; 80053; 81001; 84484; 87186; 80307; 85379; 72146; 71045; 93010; J3490; J1885; J2270; J7030